=== PATIENT | male | born 1955 | race Caucasian/White ===

== ENCOUNTER 2023-09-17 01:29 | Emergency (ER) | payer MEDICARE, OTHER, SELFPAY ==
[2023-09-17 01:32] VITALS: BP 107/77
--- NOTE | 2023-09-17 01:47 | ED.GENMED ---
History of Present Illness
<KATHIE Morris - Last Filed: 09/17/23 04:49>
General
Chief Complaint: Flank Pain
Source: patient
Exam Limitations: none
Time Seen by Provider: 09/17/23 01:39
Nursing documentation reviewed up to this point in time: agreed with
Travel History
Have you had any contact with someone who has COVID-19?: No
Do you have any symptoms of coronavirus? Fever > 100 degrees, chills, cough, shortness of breath, sore throat, loss of taste or smell, muscle aches, or headache?: No
History of Present Illness
History of Present Illness:
This is a 67 year old male with history of HLD presents to the ED w/ c/o left flank pain x1 hour. He reports the pain woke him up from his sleep. He describes the pain as stabbing, rating it a 9/10. He states the pain radiates to his left lower
quadrant. He admits having a difficult time remaining still. He has associated nausea and vomiting. He has had 1 episode of vomiting while in the ED. He denies any urinary symptoms, SOB, chest pain, upper back pain, or fever. He has had 2 prior
episodes of kidney stones about 20+ years ago, which he states passed without any intervention.
Past History
<KATHIE Morris - Last Filed: 09/17/23 04:49>
Past History
ED Past Medical History: None
Social History
Tobacco: Non-smoker
Personal:
Living: with family
Employment: Employed
Review of Systems
<KATHIE Morris - Last Filed: 09/17/23 04:49>
Review of Systems
Allergies reviewed?: Yes
All Other Systems: Not applicable
Constitutional: Reports no symptoms
EENT: Reports no symptoms
Respiratory: Reports no symptoms
Cardiac: Reports no symptoms
ABD/GI: Reports abdominal pain, nausea and vomiting
: Reports flank pain
Musculoskeletal: Reports no symptoms
Skin: Reports no symptoms
Neurological: Reports no symptoms
Endocrine: Reports no symptoms
Hematologic/Lymphatic: Reports no symptoms
Psychiatric: Reports no symptoms
Phy Exam
<KATHIE Morris - Last Filed: 09/17/23 04:49>
General Physical Exam
General Presentation: well appearing and mild distress
General Skin: warm and pale
General Habitus: normal
General Mental: alert
General Hydration: appears well hydrated
ENT Exam
ENT Exam: EOMI, pharynx normal, neck supple and normocephalic
Eye Exam
Eye Exam: PERRL, cornea clear and conjunctiva normal
Cardiovascular Exam
Cardiovascular Exam: regular rate/rhythm, no edema, no murmur and normal peripheral pulses
Pulmonary Exam
Pulmonary Exam: lungs clear, no respiratory distress, no rales, no crackles, no rhonchi, no stridor, no wheezing and no cough
Gastrointestinal Exam
Gastrointestinal Exam: normal bowel sounds, no organomegaly, no pulsatile mass, cva tenderness (Left sided), distended (B/l lower quandrants) and tender (LLQ)
Palpation: left upper quadrant: Mild tenderness
Neurological Exam
Neurological Exam: alert, oriented x3, no motor deficits and speech normal
Musculoskeletal Exam
Musculoskeletal Exam: full ROM and no edema
Skin Exam
Skin Exam: normal color, warm/dry, no rash and no petechia
Psychiatric Exam
Psychiatric Exam: normal mood/affect
Course
<KATHIE Morris - Last Filed: 09/17/23 04:49>
Orders/Labs/Results
Orders:
Orders
09/17/23 01:54
CT Abd/pel Without Iv Or Oral Urgent
Comment:
Reason For Exam: acute L flank pain, nausea
0.9% Sodium Chloride 500 ml [Nss] 500 ml IV BOLUS
Ketorolac [Toradol] 15 mg IV NOW STA
Ondansetron Injectable [Zofran] 4 mg IV NOW STA
09/17/23 02:13
Complete Blood Count/With Diff Urgent
Comprehensive Metabolic Panel Urgent
Urinalysis Reflex To Culture Urgent
Date Specimen was Collected: 09/17/23
Time Specimen was Collected: 02:11
Urine Microscopic Reflex Cult Urgent
09/17/23 03:37
Ketorolac [Toradol] 15 mg .ROUTE .STK-MED ONE
09/17/23 03:38
Ketorolac [Toradol] 15 mg IV NOW STA
Abnormal Lab Results
09/17/23
02:13
WBC 13.8 H 10^3/uL
(4.8-10.8)
RBC 3.80 L 10^6/uL
(4.70-6.10)
Hgb 11.8 L g/dL
(13.0-18.0)
Hct 34.7 L %
(39.0-52.0)
MCH 31.1 H pg
(27.0-31.0)
Abs Immat Gran (auto) 0.1 H 10^3/uL
(0-0.05)
Absolute Neuts (auto) 11.3 H 10^3/uL
(1.4-6.5)
Neutrophils % 81.9 H %
(42.2-75.2)
Lymphocytes % 12.0 L %
(20.5-51.1)
BUN 31 H mg/dl
(9-20)
Glucose 136 H mg/dl
(70-99)
Ur Occult Blood Reflex 3+ A
(Negative)
Urine RBC 50-60 A /HPF
(0-2)
Urine Bacteria (Reflex) Few A
(Negative)
09/17/23 02:13
09/17/23 02:13
Vital Signs
Initial and Last Documented VS:
Initial Vital Signs
Temp Pulse Resp BP Pulse Ox
98.3 F 56 20 107/77 100
09/17/23 01:32 09/17/23 01:32 09/17/23 01:32 09/17/23 01:32 09/17/23 01:32
Last Documented Vital Signs
Temp Pulse Resp BP Pulse Ox
98.3 F 60 16 110/62 97
09/17/23 01:32 09/17/23 04:55 09/17/23 04:55 09/17/23 04:55 09/17/23 04:55
<Manda Romero, DO - Last Filed: 09/17/23 05:44>
Orders/Labs/Results
Orders:
Orders
09/17/23 01:54
CT Abd/pel Without Iv Or Oral Urgent
Comment:
Reason For Exam: acute L flank pain, nausea
0.9% Sodium Chloride 500 ml [Nss] 500 ml IV BOLUS
Ketorolac [Toradol] 15 mg IV NOW STA
Ondansetron Injectable [Zofran] 4 mg IV NOW STA
09/17/23 02:13
Complete Blood Count/With Diff Urgent
Comprehensive Metabolic Panel Urgent
Urinalysis Reflex To Culture Urgent
Date Specimen was Collected: 09/17/23
Time Specimen was Collected: 02:11
Urine Microscopic Reflex Cult Urgent
09/17/23 03:37
Ketorolac [Toradol] 15 mg .ROUTE .STK-MED ONE
09/17/23 03:38
Ketorolac [Toradol] 15 mg IV NOW STA
Abnormal Lab Results
09/17/23
02:13
WBC 13.8 H 10^3/uL
(4.8-10.8)
RBC 3.80 L 10^6/uL
(4.70-6.10)
Hgb 11.8 L g/dL
(13.0-18.0)
Hct 34.7 L %
(39.0-52.0)
MCH 31.1 H pg
(27.0-31.0)
Abs Immat Gran (auto) 0.1 H 10^3/uL
(0-0.05)
Absolute Neuts (auto) 11.3 H 10^3/uL
(1.4-6.5)
Neutrophils % 81.9 H %
(42.2-75.2)
Lymphocytes % 12.0 L %
(20.5-51.1)
BUN 31 H mg/dl
(9-20)
Glucose 136 H mg/dl
(70-99)
Ur Occult Blood Reflex 3+ A
(Negative)
Urine RBC 50-60 A /HPF
(0-2)
Urine Bacteria (Reflex) Few A
(Negative)
09/17/23 02:13
09/17/23 02:13
Vital Signs
Initial and Last Documented VS:
Initial Vital Signs
Temp Pulse Resp BP Pulse Ox
98.3 F 56 20 107/77 100
09/17/23 01:32 09/17/23 01:32 09/17/23 01:32 09/17/23 01:32 09/17/23 01:32
Last Documented Vital Signs
Temp Pulse Resp BP Pulse Ox
98.3 F 60 16 110/62 97
09/17/23 01:32 09/17/23 04:55 09/17/23 04:55 09/17/23 04:55 09/17/23 04:55
<KATHIE Morris - Last Filed: 09/17/23 04:49>
MDM/Problems Addressed
Differential Diagnosis Includes:
Nephrolithiasis, aortic dissection, pyelonephritis, diverticulitis
Aortic dissection considered due to low back pain radiating to abdomen, however vitals are stable. Pyelonephritis considered d/t flank pain, but he denies any urinary symptoms and fever. Diverticulitis considered d/t LLQ pain but stable vitals with
no fever. I suspect nephrolithiasis due to patient's history of 2 prior episodes and symptoms. He is restless and unable to sit still, pacing back and forth. Plan on getting abd-pelvis CT w/o contrast for further evaluation.
<Manda Romero DO - Last Filed: 09/17/23 05:44>
*Radiology
Radiology exam reviewed: radiology read reviewed
*Pulse Oximetry
Patient hypoxic: no
*Critical Care Note
Total Time (30-74mins, 75-104mins- exclusive of procedures): Not Applicable
ED Attending Note
<KATHIE Morris - Last Filed: 09/17/23 04:49>
-
Portions of this chart may have been created with voice recognition software.� Occasional wrong word or��sound alike� substitutions may have occurred due to the inherent limitations of voice recognition software.
<Manda Romero DO - Last Filed: 09/17/23 05:44>
ED Attending Note
Patient seen and examined by attending physician: Yes
I performed the substantive portion of visit, reviewed & personally made and approve the management plan that is documented in note by myself or CHRIS.: Yes
I performed a history and physical exam of patient and discussed management with resident, I reviewed resident's note and agree with documented findings and plan of care.: Yes
ED Attending Note:
This is a 67-year-old gentleman who has remote history of kidney stones having passed 1 or 2 stones uneventfully perhaps 20 years ago.
He presents with abrupt onset of left flank pain waking him from sleep 2 hours ago. Left flank pain radiates to his left lower quadrant and has been accompanied with nausea without vomiting. He admits to feeling quite restless, unable to find a
comfortable position. No aggravating or relieving factors. Current pain feels somewhat similar to previous episode of kidney stone in the past. He denies fevers or chills, no dysuria no urgency nor hematuria.
He has not taken anything for discomfort.
His only daily medication is atorvastatin for hyperlipidemia.
GENERAL: 67-year-old gentleman appears somewhat younger than stated age, awake and alert, pleasant, appears in moderate distress, pacing about exam room. Easily communicative. is accompanying.
EYE: anicteric
NECK: Supple, nontender, no meningismus, no significant adenopathy.
ENT: oral mucosa is moist. No rhinorrhea.
CARDIAC: Regular rate and rhythm. no murmur.
LUNGS: Clear breath sounds bilaterally, no acute respiratory distress, no wheezes/rales/rhonchi
ABDOMEN: Soft, nondistended, mild tenderness left lower quadrant, suprapubic region as well as mild left CVA tenderness with percussion. No r/g, normoactive BS.
NEUROLOGICAL: Alert and oriented x3, no focal neuro deficits. Gait is mills and steady.
SKIN: Warm and dry, minimally pale in color, skin intact. No rash.
MUSCULOSKELETAL: No C/C/E. peripheral pulses are full and equal b/l. No palpable tenderness.
PSYCH: Mildly anxious, restless related pain.
History and exam concerning for acute left-sided renal colic/ureteric stone. Other consideration is diverticulitis, colitis, UTI, pyelonephritis.
Will medicate for pain and nausea with IV Toradol and Zofran.
Will check labs and urinalysis and plan for CT abdomen pelvis without contrast.
09/17/2023 0428 AM
Patient had brief return of renal colic after returning from CT. He has remained pain-free and comfortable after an additional IV dose of Toradol.
Labs show mildly elevated white blood cell count of 13.8, mild anemia of 11.8. No old labs to compare.
Patient admits to history of chronic anemia and has been worked up previously for myelodysplastic disorder which was unremarkable.
Chemistries show moderate prerenal azotemia with BUN of 31, normal creatinine of 0.9.
Urinalysis shows moderate microscopic hematuria but no evidence of infection.
CAT scan shows a 3 mm stone recently passed into the bladder with mild residual hydro.
Will discharge to home with a prescription for a few oral Toradol for as needed return of pain but as stone has already passed, renal colic should resolve today.
Will add Zofran for as needed return of nausea.
Discussed importance of staying well-hydrated on a daily basis.
Follow-up with PCP for recheck and patient will be provided referral information for urology for as needed follow-up especially if recurrent renal colic.
Return precautions discussed.
Discharge Plan
Departure
Patient Disposition: Home (Routine Discharge)
Date of Disposition: 09/17/23
Time of Disposition: 04:38
Patient with high blood pressure during this ER visit?: No
Condition: Good
Discharge Problem:
Acute left renal colic, Recently passed left ureteric stone
Instructions: Kidney Stones (DC), How to Strain Your Urine
Prescriptions:
New
ketorolac 10 mg tablet
10 mg PO QID PRN (Reason: pain) Qty: 10 0RF
ondansetron 4 mg tablet,disintegrating
4 mg PO QID PRN (Reason: nausea and vomiting) Qty: 20 0RF
No Action
atorvastatin 10 mg Tablet
10 mg PO DAILY
Referrals:
Ramos Brown MD [Active] - As needed
Interventions
Interventions:
*Risk Screen - Suicide Last Done: 09/17/23 01:32
*Neglect/Abuse Screening Last Done: 09/17/23 01:32
*ED COVID-19 Vaccine History Last Done: 09/17/23 01:32
*Nursing Disposition Last Done: 09/17/23 04:55
PA-Esenwl-Hqgabrbuei Assessment Last Done: 09/17/23 02:15
ED-Male Genitourinary Assessment Last Done: 09/17/23 02:15
Discharge Date and Time
Discharge Date/Time: 09/17/23 04:56
Print Language: YI
[2023-09-17] MEDS: ZOFRAN 4 MG IV (02:12)
[2023-09-17] MEDS: NSS 500 IV (02:12)
[2023-09-17] MEDS: TORADOL 15 MG IV ×2 (02:12→03:38)
[2023-09-17 02:18] LABS: % Basophils 0.4 % (0-2); % Eosinophils 0.7 % (0-6); % Immature Granulocytes 0.4 % (0-0.5); % Monocytes 4.6 % (1.7-9.3); % Neutrophils 81.9 % (42.2-75.2); Absolute Basophils 0.1 10^3/uL (0-0.2); Absolute Eosinophils 0.1 10^3/uL (0-0.7); Absolute Immature Granulocytes 0.1 10^3/uL (0-0.05); Absolute Lymphocytes 1.7 10^3/uL (1.2-3.4); Absolute Monocytes 0.6 10^3/uL (0.1-0.6); Absolute Neutrophils 11.3 10^3/uL (1.4-6.5); Hematocrit 34.7 % (39.0-52.0); Hemoglobin 11.8 g/dL (13.0-18.0); Mean Corpuscular Hgb 31.1 pg (27.0-31.0); Mean Corpuscular Volume 91.3 fL (80.0-94.0); Mean Platelet Volume 9.5 fL (7.4-10.4); Nucleated Red Blood Cells % 0 % (-); Platelet Count 223 10^3/uL (130-400); Red Cell Dist. Width 12.6 % (11.5-14.5); Urine Albumin Negative (Neg - Trace); Urine Bilirubin Negative (Negative); Urine Character Clear (Clear); Urine Color Yellow; Urine Glucose Negative (Negative); Urine Ketone Negative (Negative); Urine Leukocyte Negative (Negative); Urine Nitrite Negative (Negative); Urine Occult Blood 3+ (Negative); Urine Urobilinogen Negative (Neg - 1+); White Blood Cell Count 13.8 10^3/uL (4.8-10.8)
[2023-09-17 02:26] LABS: Urine Bacteria Few (Negative); Urine Mucus Few; Urine Red Blood Cell 50-60 /HPF (0-2)
[2023-09-17 02:31] LABS: ALT (SGPT) 35 U/L (0-50); AST (SGOT) 28 U/L (17-59); Albumin 4.3 g/dl (3.5-5.0); Alkaline Phosphatase 83 U/L (38-126); Blood Urea Nitrogen 31 mg/dl (9-20); Calcium 10.2 mg/dl (8.4-10.2); Carbon Dioxide 28 mmol/L (22-30); Chloride 106 mmol/L (98-107); Glucose 136 mg/dl (70-99); Potassium 4.4 mmol/L (3.5-5.1); Sodium 138 mmol/L (135-145); Total Bilirubin 0.4 mg/dl (0.2-1.3); Total Protein 6.7 g/dl (6.3-8.2); eGFR > 60.00
[2023-09-17 04:55] VITALS: BP 110/62
== END 2023-09-17 04:56 | disposition home or self-care (01) ==
LOC: EMR 01:29
PROVIDERS: EMERGENCY PHYSICIAN Emergency Medicine; FAMILY PHYSICIAN Family Medicine
DX: N23 Unspecified renal colic (principal); E78.00 Pure hypercholesterolemia, unspecified; D64.9 Anemia, unspecified; Z79.899 Other long term (current) drug therapy; Z87.442 Personal history of urinary calculi
CPT/HCPCS: 99284; 96374; 96375; 96376; 96361; 74176; 80053; 81003; 81015; 85025

== ENCOUNTER → 2023-12-17 08:54 | Day surgery (SDC) | payer MEDICARE, OTHER, SELFPAY ==
[2023-12-17 10:41] VITALS: BMI 24.6
== END ==
LOC: SDSPAT 08:54
PROVIDERS: ATTENDING PHYSICIAN Surgery; FAMILY PHYSICIAN Family Medicine
DX: Z01.810 Encounter for preprocedural cardiovascular examination (principal)
CPT/HCPCS: 93005; 36415

== ENCOUNTER 2023-12-29 06:20 | Day surgery (SDC) | payer MEDICARE, OTHER, SELFPAY ==
[2023-12-29] VITALS (8 sets, daily range): BP systolic 95–116; BP diastolic 53–63
[2023-12-29] MEDS: TYLENOL 1000 MG PO (07:48)
[2023-12-29] MEDS: NORMOSOL-R 1000 IV (07:48)
--- NOTE | 2023-12-29 09:50 | W.SUR.PREOP ---
Pre-Operative Surgical Note
-
I have examined this patient prior to the performance of the scheduled procedure.
The patient's condition is unchanged from the time of the current History and
Physical and the patient is able to undergo the scheduled procedure.
--- NOTE | 2023-12-29 09:51 | W.IMMPOSTOP ---
Surgical Immed Post Op Note
-
Primary Surgeon: Indio Jean MD
Assisting Surgeon: None
Pre-op Diagnosis: Left inguinal hernia
Post-op Diagnosis: Same
Procedure Performed: Laparoscopic left inguinal hernia repair with mesh (TEP approach)
Anesthesia Type: General
Specimen / Cultures: None
Estimated Blood Loss: 5 cc
Complications: None
Operative Findings: Small left indirect inguinal hernia. Small cord lipoma removed. No direct or femoral components. Floor reinforced with a large left 3D max mid weight uncoated polypropylene mesh. No tacks used.
POST OP PLAN:
Will discharge with an ice pack, after voiding.
--- NOTE | 2023-12-29 09:52 | OR.RPT ---
Operative Report
Operative Report
Patient Name: Renan Knight
: 1955
Date of Operation: 12/29/2023
Preoperative Diagnosis: Reducible Inguinal hernia, left
Postoperative Diagnosis: Same
Procedure(s):
Laparoscopic Inguinal Hernia Repair, (TEP approach)
Surgeon(s):
Dr. Jean
Core Baker(s):
None
Anesthesia: General
Estimated Blood Loss: 5 cc
Urine Output: None
Drains/Lines/Implants: Large 3D Max Bard Soft Mesh
Specimens: None
Indication for surgery: The patient has a history of groin pain and noted on exam to have a Left inguinal Hernia. Following review of therapeutic options they elected to undergo a minimally invasive repair.
Operative Findings: Small left indirect inguinal hernia. Small cord lipoma removed. No direct or femoral components. Floor reinforced with a large left 3D max mid weight uncoated polypropylene mesh. No tacks used.
Details of the operation:
After inducing general anesthesia and endotracheal intubation, the patient was prepped and draped in the supine position with both arms tucked. After infiltration with 0.25% Marcaine, a left periumbilical incision was made. Dissection was carried
down to the anterior sheath which was incised and the rectus muscle retracted laterally. An origin balloon was then inserted in through the posterior portion of the rectus into the preperitoneal space. This was insufflated under direct vision and
blunt dissection was therefore achieved in the preperitoneal space. The balloon was then removed and a 12mm Balloon trocar was placed. Two 5-mm ports were also placed in the midline below the camera port. Blunt dissection was used to dissect the
myopectineal orifice with care not to injure the epigastric vessels, gonadals or spermatic cord. Blunt dissection was used to identify the direct, indirect, and femoral spaces.
Left side:
The cord was inspected and a small indirect hernia sac was noted and reduced.
There was a small cord lipoma that was reduced and removed.
There was no weakness in the direct space floor.
There was no femoral herniation.
The area was then completely infiltrated with 20 cc of Marcaine without epinephrine (0.25%). The insufflation was slowly decreased and the mesh was assured to be in proper position with desufflation. Some intra-abdominal pneumoperitoneum was
evacuated via a small rent made in the posterior rectus sheath. The Dania trocar site was also closed with 0 PDS suture in a [id number] fashion. The skin sites were all then closed with running subcuticular 4-0 Monocryl suture followed by
dermabond. Inspection of the scrotum revealed both testes to be in position. The patient returned to the recovery room in stable condition. Sponge and instrument counts were correct. No specimen sent to pathology
I was the attending physician and performed the procedure with no assistance. I was present for all portions of the case
nIdio Jean MD
== END 2023-12-29 11:30 | disposition home or self-care (01) ==
LOC: SDS 06:20
PROVIDERS: ATTENDING PHYSICIAN Surgery
DX: K40.90 Unilateral inguinal hernia, without obstruction or gangrene, not specified as recurrent (principal)
CPT/HCPCS: 49650; C1781